=== PATIENT | female | born 1970 | race Two or more races ===

== ENCOUNTER 2016-08-29 18:12 | Emergency (ER) | payer BC ==
--- NOTE | ~2016-08-29 | EKG ---
PATIENT: KEELY RAMSEY UNIT #: [id number] Ventricular Rate: 96 BPM Atrial Rate: 96 BPM P-R Interval: 156 ms QRS Duration: 72 ms Q-T Interval: 344 ms QTC Calculation(Bezet): 434 ms P Duff: 2 degrees Calculated R Duff: 15 degrees Calculated T Duff: 10 degrees Diagnosis Line: Sinus rhythm with Premature atrial complexes Diagnosis Line: Otherwise normal ECG Diagnosis Line: Diagnosis Line: Confirmed by URIAH PERSAUD MD ([id number]) on Diagnosis Line: 08/30/2016 7:31:18 AM INTERPRETING : ESME
--- NOTE | ~2016-08-29 | CT2 ---
[facility] A Service of [facility] RADIOLOGY TEXT RESULTS PATIENT: KEELY RAMSEY LOCATION: [facility] : [birth year] UNIT #: [id number] AGE: [address]: Misael Giraldo MD SEX: F ORDER DR: [id number] [facility] [address] [place], [place] [address] [id number] MR#: [id number] Acc #: [id number] NAME: KEELY RAMSEY : 1970 SEX: F STUDY DATE/TIME: 08/30/2016 00:48 UNIT: NESS ROOM: STUDY DESCRIPTION: CT Abd and Pelv W Cont Attending Physician: Misael Giraldo Ordering Physician: Thiago Mendoza M.D. Primary Care Physician: Rk Delgado MEDICAL IMAGING REPORT This report is preliminary unless electronic signature is present EXAM CT abdomen and pelvis, 08/30/2016 at 0048 hours INDICATIONS Headache, fever and generalized abdominal pain that started yesterday. Pain rates 10 out of 10. TECHNIQUE Axial images were obtained through the abdomen and pelvis following oral and IV contrast administration. Multiplanar reformats were obtained. Comparison made with 10/01/2006. This CT exam was performed with one or more of the following radiation dose reduction techniques: automatic exposure control, adjustment of mA and/or kV according to patient size, and iterative reconstruction. FINDINGS Abdomen: There is dependent atelectasis in the lung bases. Gallbladder surgically absent. No biliary obstruction. Solid abdominal organs are normal. No adenopathy or free fluid is seen. GI tract is normal. PELVIS: There is laxity of the ventral pelvic wall. The appendix is surgically absent. The GI tract is otherwise normal. Urinary bladder is normal. The uterus is normal. The adnexa are abnormal. There is a large cystic lesion on the left side measuring 6.1 cm x 6.4 cm x 9.2 cm. Multiple cystic lesions are seen on the right side and some of them appear tubular. I cannot exclude hydrosalpinx or pyosalpinx on the right. Additionally, there is a dominant right cystic lesion measuring 4.1 cm x 4.7 cm x 3.3 cm. Followup with pelvic ultrasound is recommended. IMPRESSION 1. Appendectomy. GI tract is otherwise normal. [facility] A Service of [facility] RADIOLOGY TEXT RESULTS PATIENT: KEELY RAMSEY LOCATION: NESS : 68 UNIT #: [id number] AGE: [address]: Misael Giraldo MD SEX: F ORDER DR: 2. Multiple cystic lesions in the pelvis and both adnexa with tubular structures on the right side. These may all reflect ovarian cysts but I cannot exclude hydrosalpinx or pyosalpinx, particularly on the right side. Followup with pelvic ultrasound is recommended. 3. Cholecystectomy without biliary obstruction. Dictated by... Benjamin Grant Jr., M.D. THIS IS AN ELECTRONICALLY VERIFIED REPORT Benjamin Grant Jr., M.D. at 08/30/2016 6:10 AM ALMITA/alejandrina TD: 08/30/2016 02:46 JOB #: [id number] MEDICAL IMAGING REPORT Page 1 of 1 COPY
[~2016-08-29 18:12] MED LIST: ASPIRIN81 M2 PO; FISH OIL500 MG PO; SIMVASTATIN10 MG PO
[2016-08-29 19:33] LABS: BASOPHIL# 0.1 X10e3 (0-0.3); BASOPHIL% 0.6 % (0-2.5); EOSINOPHIL% 0.1 % (0.0-7.0); HEMATOCRIT 39.3 % (35.0-45.0); HEMOGLOBIN 12.9 gm/dL (12.0-16.0); MEAN CELL VOLUME 89.2 FL (83-96); MEAN CORPUSCULAR HEMOGLOBIN 29.3 PG (28-34); MEAN CORPUSCULAR HGB CONC 32.9 g/dL (30-36); MEAN PLATELET VOLUME 9.3 FL (6.5-11.5); MONOCYTE# 1.7 X10e3 (0-1.0); MONOCYTE% 7.6 % (3.0-12.0); NEUTROPHIL# 18.9 X10e3 (1.5-7.1); NEUTROPHIL% 82.7 % (40-75); PLATELET COUNT 153 X10e3 (140-420); RED BLOOD COUNT 4.41 X10e (3.90-5.30); RED CELL DISTRIBUTION WIDTH 13.5 % (11.0-15.5); WHITE BLOOD COUNT 22.8 X10e3 (4.0-10.5)
[2016-08-29 19:33] LABS: POC - CKMB <1.0 ng/mL (0.0-7.9); POC - TROPONIN <0.05 ng/mL (<=0.05)
[2016-08-29 19:34] LABS: DIFF IND YES
[2016-08-29 19:49] LABS: ALBUMIN SERUM 4.2 g/dL (3.5-5.0); BILIRUBIN, DIRECT 0.1 mg/dL (0.0-0.2); BILIRUBIN,INDIRECT 0.8 mg/dL (0.0-0.9); BILIRUBIN,TOTAL 0.9 mg/dL (0.2-2.0); BUN/CREATININE RATIO 15.55; CREATININE SERUM 0.9 mg/dL (0.6-1.4); GLOM FILT RATE Estimated 76.2 mL/min (>60); POTASSIUM 3.4 mmol/L (3.5-5.1); PROTEIN TOTAL SERUM 7.5 g/dL (6.0-8.3)
[2016-08-29 19:53] LABS: PLATELET ESTIMATE NORMAL (NORMAL)
[2016-08-29 22:24] LABS: POC - CKMB <1.0 ng/mL (0.0-7.9); POC - TROPONIN <0.05 ng/mL (<=0.05)
[2016-08-29 22:47] LABS: URINE SOURCE CLEAN CATCH
[2016-08-29 22:54] LABS: URINE APPEARANCE CLEAR; URINE BILIRUBIN NEG (NEG); URINE BLOOD 1+ (NEG); URINE COLOR YELLOW; URINE GLUCOSE NEG (NEG); URINE KETONE TRACE (NEG); URINE LEUKOCYTE ESTERASE NEG (NEG); URINE NITRATE NEG (NEG); URINE PH 5.5 (5-8); URINE PROTEIN NEG (NEG); URINE SPECIFIC GRAVITY 1.005 (1.003-1.035); URINE UROBILINOGEN 0.2 MG/DL (NEG)
[2016-08-29 22:57] LABS: URINE BACTERIA AUWI NEG (NEGATIVE); URINE SQUAMOUS EPITHELIAL CELL NONE SEEN /[HPF]; UWBCS1 AUWI 0-2 (0-5)
[2016-08-29 22:59] LABS: CULTURE INDICATED? NO
[2016-08-30 00:24] LABS: AMYLASE 31 U/L (0-46); LIPASE 22 U/L (22-51)
[2016-09-01 19:11] LABS: CHLAMYDIA TRACH Not Detected (Not Detected); N GONOR Not Detected (Not Detected)
== END 2016-08-30 05:17 | disposition hospice, home (50) ==
LOC: CED 18:12
PROVIDERS: Emergency Medicine
DX: N70.92 Oophoritis, unspecified (principal); E78.5 Hyperlipidemia, unspecified; Z90.49 Acquired absence of other specified parts of digestive tract; Z79.899 Other long term (current) drug therapy
CPT/HCPCS: 36415; 74177; 80048; 80076; 81003; 82150; 82553; 83690; 84484; 85025; 87491; 87591; 93005; 96361; 96365; 96375; 99285; J2405; Q9967